=== PATIENT | female | born 1975 | race Caucasian/White ===

== ENCOUNTER 2020-10-24 10:59 | Day surgery (SDC) | payer MEDICAID, SELFPAY ==
--- NOTE | 2020-10-22 13:15 | HP.PCM_ITS ---
History and Physical Date of Admission: 10/24/20
--- NOTE | 2020-10-22 13:15 | PCM.HP.BLA ---
History and Physical Date of Admission: 10/24/20
--- NOTE | 2020-10-22 13:19 | PCM.HP.BLA ---
History and Physical Kelsy Baer MD Physician Specialty: [employer] TECHNICIAN H&P ? Signed Encounter Date: 10/15/2020 Expand AllCollapse All Expand All by Default Hide copied text Hover for details Pre-Op History and Physical ? HPI: The patient is a 45 year old female presenting for discussion regarding abnormal uterine bleeding endometrial polyp found on pelvic ultrasound. Patient with heavy and irregular menses would like to proceed with surgical management to remove the suspected endometrial polyp found on ultrasound. Pt also reports does not use BC and this is something she would like to consider. ? Pre-operative visit. She is scheduled for Hysteroscopy D&C, polypectomy for Endometrial polyp, AUB- after discussion patient would like to add on Mirena IUD for contraception and heavy/irregular menses. Surgery is scheduled on 10/24/20. Procedure discussed along with risks, benefits and complications. Other alternatives discussed for management. Consent form signed? Yes. ? ? PAST MEDICAL HISTORY PAST MEDICAL HISTORY Diagnosis Date ? Abdominal pain ? ? was told she could be having IBD. ? Cardiac murmur ? ? ? type ? Crohn disease (HCC) ? ? well controlled ? Hypertension ? ? Low back pain radiating to left leg ? ? had surgery apr 2011 ? Multiple sclerosis (HCC) ? ? Optic neuritis 2003 ? Stress incontinence ? ? ? PAST SURGICAL HISTORY PAST SURGICAL HISTORY Procedure Laterality Date ? ANTERIOR DISCECTOMY ? ? ? 2011, they scrapd of a bone that was impinging the spinal cord. ? COLONOSCOP W/ OR W/O [facility] SPEC ? 11/01/2013 ? Colonoscopy ? DISKECTOMY, LUMBAR, ADDTNL SP ? ? ? L5- S1 on th left ? HEMILAMINCTMY, THORAC, POST APPR ? ? ? LUMBAR OR CAUDAL EPIDURAL STEROID INJECTION ? CURRENT MEDICATIONS Current Outpatient Medications Medication Sig Dispense Refill ? gabapentin (NEURONTIN) 100 mg capsule Take 1 capsule by mouth daily at bedtime for 30 days. 30 capsule 2 ? rOPINIRole (REQUIP) 2 mg tablet Take 1 tablet by mouth daily at bedtime. 30 tablet 3 ? COPAXONE 40 mg/mL injection Inject 40 mg subcutaneously every Wednesday,Wednesday,Wednesday. 36 Syringe 3 ? sertraline (ZOLOFT) 50 mg tablet Take 25 mg by mouth for 2 weeks then increase to 50 mg daily 30 tablet 5 ? No current facility-administered medications for this visit. ? ? ALLERGIES: Steroids [Corticosteroids (Glucocorticoids)] ? PERSONAL HISTORY: SOCIAL HISTORY Social History ? Tobacco Use ? Smoking status: Former Smoker ? ? Types: Cigarettes ? ? Start date: 02/04/1990 ? ? Quit date: 05/20/2012 ? ? Years since quittin.4 ? Smokeless tobacco: Never Used ? Tobacco comment: Father smoked in childhhod home. Spouse ex smoker, Not in the house. Vaping Use ? Vaping Use: Never used Substance Use Topics ? Alcohol use: No ? Drug use: No ? FAMILY HISTORY: FAMILY HISTORY FAMILY HISTORY Problem Relation Age of Onset ? Diabetes Mother ? ? Hypertension Mother ? ? Ischemic Heart Disease Mother ? ? Arthritis Mother ? ? ?osteoarthritis ? Cancer Father ? ? lung ? Diabetes Father ? ? Hypertension Father ? ? Ischemic Heart Disease Father ? ? defib,chf, [place] ? Arthritis Father ? ? ?osteoarthitis ? Cancer Maternal Uncle ? ? lymphoma ? Cancer Paternal Aunt ? ? lymphoma, lung ? Cancer Maternal Uncle ? ? throat cancer ? Cancer Paternal Aunt ? ? breast ? other (parkinsons) Paternal Uncle ? ? Multiple Sclerosis Other ? ? on fathers side of the family ? Multiple Sclerosis Daughter ? ? other (crohns) Daughter ? ? Severe ? other (wpw) Brother ? ? ? REVIEW OF SYMPTOMS: Has MS and experiences dizziness around cycles. PHYSICAL EXAMINATION: ? VITALS: Last menstrual period 08/10/2020. ? GENERAL: The patient is well nourished, well hydrated in no acute distress. , The patient is oriented to time, place, and person. NECK: full range of motion NEURO: alert and oriented x 3 ? IMPRESSION: AUB, endometrial polyp, Contraception mgmt ? PLAN: Hysteroscopy, D&C, Polypectomy, Insertion of Mirena IUD ? Covid testing reviewed- not vaccinated. Pre and Post op instructions reviewed ? Pt has been counseled on risks/benefits and alternatives of surgery including but not limited to anesthesia, bleeding, infection, uterine perforation with subsequent injury to pelvic structures including bowel, bladder, ureters and vessels. Pt wishes to proceed with surgery at this time. ? MIRENA pamphlet given- referral placed ? I have reviewed and updated past medical and surgical history, medications and allergies Kelsy Baer MD Office Visit on 10/15/2020 Office Visit on 10/15/2020 Note shared with patient
[2020-10-24] VITALS (7 sets, daily range): BP systolic 123–148; BP diastolic 71–84; PULSE 55–66; RESP 16; TEMP 36.1–36.6; O2SAT 95–100; BMI 34.2
[2020-10-24 11:42] LABS: Internal QC Validated? YES +Cl - CLEAR BKGD; Pregnancy, Urine Negative Negative
[2020-10-24 11:57] LABS: Hemoglobin 9.5 g/dL (12.0-15.0); Mean Corp Hgb Conc 29.7 g/dL (32-36); Mean Corpuscular Hgb 22.7 pg (27.0-32.0); Mean Corpuscular Volume 76.6 fL (81-99); Mean Platelet Vol. 9.5 fl (6.2-12.0); Platelet Count 300 K/mm3 (150-450); RBC Distribution Width CV 15.3 % (11.6-14.6); RBC Distribution Width SD 42.5 fl (35.1-43.9); Red Blood Count 4.18 M/mm3 (4.2-5.4); White Blood Count 5.5 K/mm3 (4.4-11.0)
[2020-10-24] MEDS: Lactated Ringers 1,000 ML 100 ML IV (12:04)
--- NOTE | 2020-10-24 12:45 | EMB_PTH ---
PATIENT: VENESSA CARBONE [place] [facility] [place][id number] AGE/SX: 45/F ROOM: RE10/24/[address]: Dr. Kelsy Mcconnell, MDDOB: 1975 BED: DIS: 10/24/2020 SPEC #: [id number] RECD: 10/24/20 13:40 STATUS: LAURA RYLAN #: [id number] LEONARD: 10/24/20 12:[address]: Kelsy Mcconnell DEPT: SURGICAL PATHOLOGY RECD BY: Mynor Rodriguez ENTERED: 10/25/20 08:40 SP TYPE: ENDOM BX/C SRINIVASAHR DR: Dr. rAnav Mcmullen, DO Tissues: A - POLYP B - Endometrium, NOS Procedures: Surgery Specimen Level IV HEADER OPERATION: Hysteroscopy, D & C Symphion, polypectomy, insertion Mirena IUD PRE-OP DIAGNOSIS: AUB, endometrial polyp, endocervical polyp, contraception management TISSUE SUBMITTED: A ? Endocervical polyp, B ? Endometrial curettings and endometrial polyp MICROSCOPIC DIAGNOSIS A. Endocervical polyp, biopsy: Benign endocervical polyp, mildly inflamed. B. Endometrial curettings and polyp: Polypoid fragments of secretory endometrium with glandular and stromal breakdown. Fragments of benign myometrial tissue. Rare fragment of benign squamous mucosa. AM:ellis 10/28/2020 MICROSCOPIC DESCRIPTION Slides are reviewed. GROSS DESCRIPTION A - Received in fixative is one container labeled with the patient's name and designated endocervical polyp. The specimen consists of an irregular fragment of light corbett soft tissue measuring 1.7 x 1.5 x 0.2 cm. The specimen is totally submitted in one cassette. B - Received in fixative is one container labeled with the patient's name and designated endometrial curettings and polyp. The specimen consists of multiple irregular fragments of pink-corbett soft tissue that in aggregate measure 6 x 5 x 0.2 cm. The specimen is totally submitted in three cassettes. / AM:ellis 10/25/20 TC:5 CPT: 12969 x2
--- NOTE | 2020-10-24 12:54 | OP.PCM_ITS ---
Problems Associated Problem List Diagnoses (1) Abnormal uterine bleeding (AUB): (2) Endometrial polyp: Report of Operation Date of Procedure: 10/24/20 Pre-Operative Diagnosis: AUB, Endometrial polyps, contraceptive mgmt - IUD placement Post-Operative Diagnosis: same, endocervical polyp Surgery/Procedure Performed:: Hysteroscopy, D&C, Polypectomy, Mirena IUD insertion Description of Surgical Findings:: large endocervical polyp noted. Polypoid and thick endometrial tissue present on hysteroscopy. IUD placed without difficulty. Surgeon: Kelsy Mcconnell Type of Anesthesia: MAC Specimen's removed: Endometrial curetting, endometrial polyps, endocervical polyp Drains: none Estimated Blood Loss (mL): 5cc Fluids Replaced: 500 Description of Procedure: informed consent was obtained the patient was taken the operating room she was placed in supine position. She was given anesthesia. She was then placed in the [facility] where she was prepped and draped in the normal sterile fashion. Bladder drained. At this time the weighted speculum was placed in the posterior fornix of vagina. Single-tooth tenaculum was used to gently grasp the anterior lip the cervix. At this time the uterine cavity was sounded to approximately 9 cm. Cervical polyp noted- it was grasped with ring forcep and with twisting motion removed. cervix already dilated- at this time the hysteroscopy was performed normal saline as a distention medium was placed. thick endometrial tissue and polypoid tissue present. Symphion resection device used to perform Endometrial curettage and removal of polypoid tissue and removal of stalk of endoecervical polyp. Tissue will be sent to pathology for evaluation. Minrea IUD opened and inserted to the uterine fundus without difficulty. strings cut to 2cm from OS. Tenaculum removed. Good hemostasis. Instrument, lap count correct x 2. Vaginal Sweep was negative. Grafts/Implants Used: Mirena IUD Procedure Start Time: 13:06 Procedure Stop Time: 13:16 Complications none Admit VTE Documentation VTE Present on Admission: Yes VTE Mechan Device Prophylaxis: SCD's VTE Pharm Prophylaxis ordered?: No Reason prophylaxis not ordered:: Procedure Not Indicated
--- NOTE | 2020-10-24 13:21 | EX.PCM.DISCH ---
Discharge Instructions Procedure D&C Diet Discharge Diet: No restrictions Activity May resume sexual activity in: 1 week Dressing / Incision Call your doctor if you observe: Fever of 101 or Higher, Inability to urinate, Using more than 1 pad per hour and Uncontrolled pain Follow Up Care Please Follow Up With: Kelsy Mcconnell MD When: 1-2 weeks post OP if you need an appointment please call [phone] Test Results: Test results from this visit will be discussed in further detail at your follow-up appointment, if applicable. Discharge Plan Admission Attending Provider: Kelsy Mcconnell Primary Care Provider: Arnav Mcmullen Discharge Orders/Prescriptions Prescriptions: No Action gabapentin 100 mg capsule 100 mg PO PRN PRN (Reason: RESTLESS LEGS) RF: 0 glatiramer [Copaxone] 40 mg/mL Syringe 40 mg SUBCUT .3 TIMES WEEKLY RF: 0
== END 2020-10-24 15:05 | disposition home or self-care (01) ==
LOC: SDC 11:01 → AC 11:03
PROVIDERS: Anesthesiology; PCP Student in an Organized Health Care Education/Training Program; Referring Provider Obstetrics & Gynecology; Visit Provider Obstetrics & Gynecology
PROC: 0UB98ZZ Excision of Uterus, Via Natural or Artificial Opening Endoscopic (ICD-10-PCS; CPT 58558; principal; 2020-10-24 12:30)
DX: N84.0 Polyp of corpus uteri (principal); Z30.430 Encounter for insertion of intrauterine contraceptive device; N93.9 Abnormal uterine and vaginal bleeding, unspecified; Z20.822 Contact with and (suspected) exposure to COVID-19; G35 Multiple sclerosis; K50.90 Crohn's disease, unspecified, without complications; I10 Essential (primary) hypertension; N39.3 Stress incontinence (female) (male); Z79.899 Other long term (current) drug therapy; Z87.891 Personal history of nicotine dependence
CPT/HCPCS: 58300; 58558; 81025; 85027; 87426; 88305; C9803; J7120

== ENCOUNTER 2021-05-26 09:30 | Outpatient (RCR) | payer MEDICAID, SELFPAY ==
--- NOTE | 2021-04-22 09:09 | HP.PTEVAL_ITS ---
Patient's Visit Information VENESSA CARBONE is a 46 year old F referred to Physical Therapy by Dr. Arnav Mcmullen DO with a diagnosis of MS. Date of Evaluation: 04/21/21 Physical Therapist: Alexandro Clifton, PT, ATC - Visit Plan Frequency: 2x /Week Duration: 4-6 Weeks Plan: B LE strengthening, balance and proprio, core stabilization ex's, gait training, nustep, and HEP - Subjective Pt reports she was diagnosed with MS in 2014. Pt reports she started off with having numbness on the L side of her brain which made her start to perform actions backwards. Pt reports after seeing a neurologist, she was diagnosed with MS. Pt reports she has been dealing with these symptoms over the past few years, but notes now her legs are getting weak and she feels like she needs to strengthen them to keep her out of a wheelchair. Pt reports intermittent tingling and numbness in LE's. Pt reports she has 3 stairs to get into her house, and notes she has difficulty with negotiating them. Pt reports her pain is throughout her entire body which causes her to have sleep difficulty at night. 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 Pt is I with ADL's at this time, but fatigues quickly while she is showering and cleaning her house. Pt reports her pain ranges from 5/10 to 8/10 at worst. Pt reports she has no Hx of falls, but notes she gets dizzy a lot which has almost resulted in falls. - Pain LE's Pain Intensity (Out of 10): 5 Pain Intensity Range: 8 - Objective Neuro: B LE sensation is WNL to light touch. B patellar reflex= 2/3. MMT: B hips are grossly 4+/5 in all ranges. B knee flex and extension 4-/5. Gait : Pt is able to ambulate approximately 120' until needing to rest secondary to LE pain. Stairs: Pt is able to negotiate one set of 10 stairs with the use of handrail. Very sore at the end - Balance/Special Test Scores Lower Extremity Functional Score: 56 - Goals Goal 1:: Increase B LE strength x 1 grade to aid with stair negotiation Goal Time Frame: 4-6 Weeks Goal 2:: Pt will be able to negotiate 4 flights of stairs to aid with independence at home Goal Time Frame: 4-6 Weeks Goal 3:: I with HEP Goal Time Frame: 4-6 Weeks - Rehabilitation Potential Physical Therapy Diagnosis: Pt has B LE weakness, pain, and difficulty with prolonged ambulation secondary to MS Rehabilitation Potential: Good - Anticipated Interventions Patient/Client Instruction: Educate patient on: Condition, Plan of Care For the Purpose of:: To improve self management Therapeutic Exercise to Include: Strength training, Endurance training, Balance training, Gait and locomotor training, Dynamic Lumbar Stabilization For the Purpose of:: To decrease pain, To improve muscle performance and motor function, To increase tolerance to activity/condition/position Thank you for the opportunity to evaluate your patient. For Medicare and Medicare HMO plans, please review the plan of care and approve it. It will need to be FAXED BACK to us at [phone] for Medicare purposes. For Medicare only, by signing this I certify the plan of care. Please let me know if there are questions or concerns regarding this plan of care. Physician Signature: Date:
--- NOTE | 2021-05-26 10:25 | HP.PTDCSUM ---
It has been my pleasure to treat VENESSA CARBONE referred by Dr. Arnav Mcmullen, DO, with the diagnosis of MS for a total of 8 visit(s). Discharge Date: Please see the following information for a summary of their discharge status. Subjective: I am not sure PT is helping me at this time LE's Pain Intensity (Out of 10): 4 whole body Pain Intensity (Out of 10): 4 R UE Pain Intensity (Out of 10): 4 % Improvement: 10 Objective/Function: B hips and R knee flex and ext are 5/5 throughout. L knee flex and ext= 4/5. Pt is able to negotiate 2 flights of stairs until needing a rest. Pt is able to ambulate 170 feet until needing a rest break. Pt is I with HEP of core and LE strengthening, and balance activities. Pt is displaying improved stair negotiation, LE strength, and gait tolerance at this time. Goal 1:: Increase B LE strength x 1 grade to aid with stair negotiation Goal Progress: Progressing Goal 2:: Pt will be able to negotiate 4 flights of stairs to aid with independence at home Goal Progress: Progressing Goal 3:: I with HEP Goal Progress: Goal Met Plan: Discontinue to HEP If there are questions or concerns regarding this patient's physical therapy, please feel free to call me at [phone]. Thank you for the referral of this patient. Sincerely, Alexandro Clifton, PT, ATC Balance/Gait/Functional tests - Balance/Special Test Scores Lower Extremity Functional Score: 51
== END 2021-05-26 19:00 | disposition home or self-care (01) ==
LOC: PT 09:30
PROVIDERS: PCP Student in an Organized Health Care Education/Training Program; Referring Provider Student in an Organized Health Care Education/Training Program; Visit Provider Student in an Organized Health Care Education/Training Program
DX: G35 Multiple sclerosis (principal)
CPT/HCPCS: 97110; 97161; 97164